=== PATIENT | male | born 1995 | race Asian ===

== ENCOUNTER 2019-08-04 17:41 | Emergency (ER) | payer BC, OTHER ==
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
[2019-08-04] MEDS ORDERED: Ibuprofen TAB* 600 MG PO ONE (18:20)
[2019-08-04 18:57] VITALS: BP 128/68
== END 2019-08-04 18:45 | disposition home or self-care (01) ==
LOC: ED 17:41
DX: S99.911A Unspecified injury of right ankle, initial encounter (principal); V03.10XA Pedestrian on foot injured in collision with car, pick-up truck or van in traffic accident, initial encounter; Y93.01 Activity, walking, marching and hiking; Y92.410 Unspecified street and highway as the place of occurrence of the external cause
CPT/HCPCS: 99282; A9270-GY